=== PATIENT | female | born 1965 | race Caucasian/White ===

== ENCOUNTER 2021-11-01 14:25 | Inpatient (IN) | payer OTHER ==
[~2021-11-01] VITALS: Ht 170.2 cm; Wt 95.8 kg
[2021-11-01 14:25] VITALS: BP 175/85
--- NOTE | 2021-11-01 14:25 | NUR ---
Patient arriced to unit via stretcher with EMS from [facility]. present. Patient reports right sided abdominal and flank pain before going to [facility] where they discovered a 5 mm stone in the right kidney. Patient is alert and oriented. Provided list of home medications.
[2021-11-01] MEDS ORDERED: ELECTROLYTE (NON-ICU) PROTOCOL. MC PRN (14:45)
[2021-11-01] MEDS ORDERED: ZOLPIDEM 5 MG TABLET. PO PRN (14:45)
[2021-11-01] MEDS ORDERED: MORPHINE SULFATE 2 MG/ML INJ. IV PRN (14:45)
[2021-11-01] MEDS ORDERED: ACETAMINOPHEN 325 MG TABLET. PO PRN (14:45)
[2021-11-01] MEDS ORDERED: HYDROmorphone 2 MG/ML INJ. IVP ONE (14:45)
[2021-11-01] MEDS ORDERED: CALCIUM CARBONATE 500 MG TAB.CHEW PO PRN (14:45)
[2021-11-01] MEDS: HEPARIN for SUB-Q USE 5,000 UNIT/ML VIAL. SQ SCH ×2 (15:00→22:05)
[2021-11-01] MEDS: ONDANSETRON PF 4 MG/2 ML VIAL. IVP PRN ×2 (15:05→21:58)
[2021-11-01] MEDS: INSULIN LISPRO 300 UNITS/3 ML VIAL. SQ SCH (17:00)
[2021-11-01] MEDS: metFORMIN 500 MG TABLET PO SCH (17:00)
--- NOTE | 2021-11-01 18:38 | PDOC1 ---
History and Physical Date of Service: DOS: DATE: 11/01/21 TIME: 18:31 Chief Complaint: Chief Complain: abdominal pain History of Present Illness: HPI: 56-year-old female presented to outside hospital due to right lower quadrant pain. Recently seen for similar and was diagnosed with diverticulitis. Discharged with Augmentin but has only had worsening in the pain. Unable to bear the pain at home she presented to the emergency room today. While there pain was controlled. Imaging showed no signs of ongoing diverticulitis however finding of a right ureteral stone. Patient was given pain control and Flomax and transferred here for further treatment. On arrival here patient in a fair bit of pain. Will order pain meds. Urology consultation. Past Medical/Surgical History: PMH/PSH: Past Medical History: Diabetes, Hypertension Past Surgical History: Tubal ligation Additional Past Surgical Histo: LUMBAR NERVE ABLATION Smoking: Non-smoker Alcohol Use: None Drug Use: None Allergies: Allergies: Coded Allergies: lisinopril (Verified Allergy, Intermediate, 11/01/21) codeine (Verified Adverse Reaction, Unknown, Nausea, 11/01/21) Family History: Family History: HTN Current Medications: Current Medications Current Medications Ondansetron HCl (Zofran) 4 mg PRN Q6HRS PRN IVP NAUSEA/VOMITING Last administered on 11/01/21at 15:05; Start 11/01/21 at 14:45 Calcium Carbonate/ Glycine (Tums) 500 mg PRN Q3HRS PRN PO UPSET STOMACH; Start 11/01/21 at 14:45 Zolpidem Tartrate (Ambien) 5 mg PRN QHS PRN PO INSOMNIA, MAY REPEAT IN 1HR; Start 11/01/21 at 14:45 Info (Non-Icu Electrolyte Protocol) 1 ea PRN DAILY PRN MC SEE COMMENTS; Start 11/01/21 at 14:45 Morphine Sulfate (Morphine Sulfate) 1 mg PRN Q1HR PRN IV PAIN-SEE COMMENTS; Start 11/01/21 at 14:45 Morphine Sulfate (Morphine Sulfate) 2 mg PRN Q1HR PRN IV PAIN-SEE COMMENTS; Start 11/01/21 at 14:45 Acetaminophen (Tylenol) 650 mg PRN Q6HRS PRN PO Headaches, Temp > 101.5F; Start 11/01/21 at 14:45 Senna/Docusate Sodium (Senna Plus) 1 tab BID PO ; Start 11/01/21 at 21:00 Heparin Sodium (Porcine) (Heparin Sodium) 5,000 unit Q8HRS SQ Last administered on 11/01/21at 15:00; Start 11/01/21 at 15:00 Hydromorphone HCl (Dilaudid) 1 mg 1X ONCE IVP Last administered on 11/01/21at 15:05; Start 11/01/21 at 14:45; Stop 11/01/21 at 14:53; Status DC Metformin HCl (Glucophage) 1,000 mg BIDWMEALS PO Last administered on 11/01/21at 17:00; Start 11/01/21 at 17:00 Bupropion HCl (Wellbutrin Xl) 300 mg DAILY PO ; Start 11/02/21 at 09:00 Fluoxetine HCl (PROzac) 40 mg DAILY PO ; Start 11/02/21 at 09:00 Cyanocobalamin (Vitamin B-12) 1,000 mcg DAILY PO ; Start 11/02/21 at 09:00 Losartan Potassium (Cozaar) 100 mg DAILY PO ; Start 11/02/21 at 09:00 Diphenhydramine HCl (Benadryl) 25 mg HS PO ; Start 11/01/21 at 21:00 Insulin Glargine (Lantus Syringe) 30 unit QHS SQ ; Start 11/01/21 at 21:00 Insulin Human Lispro (HumaLOG) 20 units TIDWMEALS SQ Last administered on 11/01/21at 17:00; Start 11/01/21 at 17:00 Atorvastatin Calcium (Lipitor) 40 mg HS PO ; Start 11/01/21 at 21:00 ROS: Review of Systems Review of System Unless noted in HPI 14 point review of systems was negative Physical Exam: Vital Signs: Vital Signs Date Time Temp Pulse Resp B/P (MAP) Pulse Ox O2 Delivery O2 Flow Rate FiO2 11/01/21 18:07 16 98 Room Air 11/01/21 14:25 97.5 64 175/85 (115) 97.5 Physcial Exam: GEN: Severe distress. Alert and oriented HEENT: Normal cephalic, atraumatic, external auditory canals are patent EYES: Extraocular muscles are intact, pupil are equally round and reactive to light and accommodation MUSCULOSKELETAL: Well developed , well nourished, good range of motion ENDOCRINE: No thyromegaly was palpated LYMPHATICS: No cervical chain or axillary nodes were noted HEMATOPOIETIC: No bruising NECK: Supple, no JVD, no thyromegaly was noted LUNGS: Clear to auscultation in all lung mejía without rhonchi or wheezing HEART: RRR, S1, S2 present. Peripheral pulses intact, no obvious murmurs noted ABDOMEN: Diffusely tender even with soft palpation to right lower quadrant. CVA tenderness present EXTREMITIES: Without clubbing, cyanosis, or edema. Pedal pulses intact. Negative Homans sign NEUROLOGIC: Normal speech and tone. A&O x 3, moves all extremities, no obvious focal deficits PSYCHIATRIC: Normal affect, normal mood. Stable SKIN: No ulcerations or rashes, good skin turgor, no jaundice VASCULAR: Good capillary refill, neurovascular bundle appears to be intact Assessment/Plan Assessment/Plan Right lower quadrant pain secondary to right ureteral stone, history of and recent diagnosis of diverticulitis; history hypertension diabetes -Presented to outside hospital with abdominal pain. Found to have 5 mm right ureteral stone. Transferred here -Aggressive pain regimen. Received Flomax at outside hospital -Urology consultation --> recommended n.p.o. midnight in event of procedure if needed -No signs of further diverticulitis on imaging. Will at least continue Augmentin to complete course -DVT prophylaxis just for tonight -Med reconciliation needed. Most home meds can likely be continued -Regular diet n.p.o. midnight -Discussed with bedside RN. Justifications for Admission Other Justification CHRIS WARD MD November 01, 2021 18:38
[2021-11-01 18:48] LABS: BASO % 0 % (0-3); EOS % 0 % (0-3); LYMPH # 1.3 x10^3/uL (1.0-4.8); LYMPH % 20 % (24-48); MEAN CORPUSCULAR HEMOGLOBIN 28 pg (25-35); MEAN CORPUSCULAR HGB CONC 33 g/dL (31-37); MEAN CORPUSCULAR VOLUME 83 fL (79-100); MONO # 0.3 x10^3/uL (0.0-1.1); MONO % 4 % (0-9); NEUT # 4.6 x10^3/uL (1.8-7.7); NEUT % 75 % (31-73); PLATELET COUNT 280 x10^3/uL (140-400); RED BLOOD COUNT 4.34 x10^6/uL (3.50-5.40); RED CELL DISTRIBUTION WIDTH 14.1 % (11.5-14.5); WHITE BLOOD COUNT 6.1 x10^3/uL (4.0-11.0)
[2021-11-01 19:05] LABS: CREATININE 0.9 mg/dL (0.6-1.0); POTASSIUM 3.8 mmol/L (3.5-5.1)
[2021-11-01 19:39] VITALS: BP 143/82
[2021-11-01] MEDS: SENNOSIDES/DOCUSATE 8.6/50MG TABLET. PO SCH (20:03)
[2021-11-01] MEDS: MORPHINE SULFATE 2 MG/ML INJ. IV PRN (20:08)
[2021-11-01] MEDS: diphenhydrAMINE HCL 25 MG CAPSULE PO SCH (20:09)
[2021-11-01] MEDS: INSULIN GLARGINE SYRINGE. SQ SCH (20:09)
[2021-11-01] MEDS: ATORVASTATIN CALCIUM 40 MG TABLET. PO SCH (20:09)
--- NOTE | 2021-11-01 20:13 | NUR ---
Glucose per sensor was 70, 69. Asymptomatic. Given apple juice.
--- NOTE | 2021-11-01 20:25 | NUR ---
Glucose 66. Pt drank more apple juice. Will monitor.
--- NOTE | 2021-11-01 20:41 | NUR ---
Glucose: 75. Offered snacks. Crackers given.
[2021-11-01 23:14] VITALS: BP 149/74
[2021-11-02] VITALS (12 sets, daily range): BP systolic 131–180; BP diastolic 73–89
[2021-11-02] MEDS: HEPARIN for SUB-Q USE 5,000 UNIT/ML VIAL. SQ SCH ×3 (03:55→21:53)
[2021-11-02] MEDS: MORPHINE SULFATE 2 MG/ML INJ. IV PRN ×6 (03:58→21:43)
[2021-11-02] MEDS: ONDANSETRON PF 4 MG/2 ML VIAL. IVP PRN ×2 (04:02→10:26)
--- NOTE | 2021-11-02 04:06 | NUR ---
Glucose @ 3am: 145
[2021-11-02] MEDS: LOSARTAN POTASSIUM 50 MG TABLET. PO SCH ×2 (07:56→17:42)
[2021-11-02] MEDS: metFORMIN 500 MG TABLET PO SCH ×2 (07:56→17:00)
[2021-11-02] MEDS: CYANOCOBALAMIN (VITAMIN B-12) 1,000 MCG TABLET. PO SCH ×2 (07:57→17:41)
[2021-11-02] MEDS: buPROPion XL 150 MG TAB.ER.24H. PO SCH ×2 (07:57→17:41)
[2021-11-02] MEDS: SENNOSIDES/DOCUSATE 8.6/50MG TABLET. PO SCH ×2 (07:57→21:25)
[2021-11-02] MEDS: FLUoxetine HCL 20 MG CAPSULE PO SCH ×2 (07:57→17:41)
[2021-11-02] MEDS: INSULIN LISPRO 300 UNITS/3 ML VIAL. SQ SCH ×3 (08:00→17:00)
--- NOTE | 2021-11-02 08:00 | NUR ---
Pt blood sugar 160 via free style jeovany. Humalog held due to NPO status.
[2021-11-02 09:29] LABS: BACTERIA,URINE MODERATE /HPF (0-FEW); RBC,URINE 20-40 /HPF (0-2)
--- NOTE | 2021-11-02 10:17 | PDOC2 ---
UROLOGY CONSULT DOS: DATE: 11/02/21 TIME: 10:09 Reason for Consult: Kidney stone 56F transferred from [facility] for a 5 mm distal right ureteral stone. Patient states she was having very sharp and constant right lower quadrant pain with intermittent right flank pain. Pain was not going away so she went to the emergency department. CT scan showing mild right-sided hydronephrosis from the obstruction. Her creatinine stable at 0.9. I did not see an initial urinalysis in the chart, but this was completed this morning and does not show any infection. She has been straining her urine overnight and has not passed the stone. She does not have any history of stones. She has never had any procedures. She does not follow with urology. She is having gross hematuria and mild urinary frequency. She denies any fevers. She has been afebrile with stable vitals here in the hospital. She does not have a leukocytosis. Past medical history significant for hypertension, diabetes, hyperlipidemia. She does not take any anticoagulation at baseline. She is still having pain this morning as well as slight nausea ROS Constitutional: Denies fevers, chills, weakness Cardiovascular: Denies chest pain, palpitations Respiratory: Denies shortness of breath, wheezing, dyspnea on exertion GI: + abdominal pain, nausea, -vomiting : Denies dysuria,+ frequency, urgency, hematuria, -urinary retention, flank pain Skin: Denies rash, bruising Musculoskeletal: Denies extremity pain, extremity edema Psychiatric: Denies stress, anxiety Past Surgical History: No pertinent history Current Medications Current Medications Ondansetron HCl (Zofran) 4 mg PRN Q6HRS PRN IVP NAUSEA/VOMITING Last administered on 11/02/21at 04:02; Start 11/01/21 at 14:45 Calcium Carbonate/ Glycine (Tums) 500 mg PRN Q3HRS PRN PO UPSET STOMACH; Start 11/01/21 at 14:45 Zolpidem Tartrate (Ambien) 5 mg PRN QHS PRN PO INSOMNIA, MAY REPEAT IN 1HR; Start 11/01/21 at 14:45 Info (Non-Icu Electrolyte Protocol) 1 ea PRN DAILY PRN MC SEE COMMENTS; Start 11/01/21 at 14:45 Morphine Sulfate (Morphine Sulfate) 1 mg PRN Q1HR PRN IV PAIN-SEE COMMENTS; Start 11/01/21 at 14:45 Morphine Sulfate (Morphine Sulfate) 2 mg PRN Q1HR PRN IV PAIN-SEE COMMENTS Last administered on 11/02/21at 08:35; Start 11/01/21 at 14:45 Acetaminophen (Tylenol) 650 mg PRN Q6HRS PRN PO Headaches, Temp > 101.5F; Start 11/01/21 at 14:45 Senna/Docusate Sodium (Senna Plus) 1 tab BID PO Last administered on 11/01/21at 20:03; Start 11/01/21 at 21:00 Heparin Sodium (Porcine) (Heparin Sodium) 5,000 unit Q8HRS SQ Last administered on 11/01/21at 22:05; Start 11/01/21 at 15:00 Hydromorphone HCl (Dilaudid) 1 mg 1X ONCE IVP Last administered on 11/01/21at 15:05; Start 11/01/21 at 14:45; Stop 11/01/21 at 14:53; Status DC Metformin HCl (Glucophage) 1,000 mg BIDWMEALS PO Last administered on 11/01/21at 17:00; Start 11/01/21 at 17:00 Bupropion HCl (Wellbutrin Xl) 300 mg DAILY PO ; Start 11/02/21 at 09:00 Fluoxetine HCl (PROzac) 40 mg DAILY PO ; Start 11/02/21 at 09:00 Cyanocobalamin (Vitamin B-12) 1,000 mcg DAILY PO ; Start 11/02/21 at 09:00 Losartan Potassium (Cozaar) 100 mg DAILY PO ; Start 11/02/21 at 09:00 Diphenhydramine HCl (Benadryl) 25 mg HS PO ; Start 11/01/21 at 21:00 Insulin Glargine (Lantus Syringe) 30 unit QHS SQ ; Start 11/01/21 at 21:00 Insulin Human Lispro (HumaLOG) 20 units TIDWMEALS SQ Last administered on 11/01/21at 17:00; Start 11/01/21 at 17:00 Atorvastatin Calcium (Lipitor) 40 mg HS PO ; Start 11/01/21 at 21:00 Allergies: Coded Allergies: lisinopril (Verified Allergy, Intermediate, 11/01/21) codeine (Verified Adverse Reaction, Mild, Nausea, 11/02/21) Physical Examination GENERAL: awake, alert, oriented SKIN: warm, dry RESPIRATORY: Aerating well, symmetrical expansion GI: Soft, right lower quadrant tender to palpation no guarding, no rebound : Exam deferred, no CVA tenderness MUSCULOSKELETAL: Moves all extremities, no edema NEURO: No gross abnormalities PSYCHIATRIC: Normal mood, normal affect, pleasant DOES THIS PATIENT HAVE URINARY: No VITALS Vital Signs Date Time Temp Pulse Resp B/P (MAP) Pulse Ox O2 Delivery O2 Flow Rate FiO2 11/02/21 09:10 Room Air 11/02/21 07:00 98.2 93 18 141/76 (97) 96 98.2 Labs Laboratory Tests Test 11/01/21 18:20 11/01/21 19:43 11/02/21 08:45 White Blood Count 6.1 x10^3/uL (4.0-11.0) Red Blood Count 4.34 x10^6/uL (3.50-5.40) Hemoglobin 12.0 g/dL (12.0-15.5) Hematocrit 36.0 % (36.0-47.0) Mean Corpuscular Volume 83 fL (79-100) Mean Corpuscular Hemoglobin 28 pg (25-35) Mean Corpuscular Hemoglobin Concent 33 g/dL (31-37) Red Cell Distribution Width 14.1 % (11.5-14.5) Platelet Count 280 x10^3/uL (140-400) Neutrophils (%) (Auto) 75 % (31-73) Lymphocytes (%) (Auto) 20 % (24-48) Monocytes (%) (Auto) 4 % (0-9) Eosinophils (%) (Auto) 0 % (0-3) Basophils (%) (Auto) 0 % (0-3) Neutrophils # (Auto) 4.6 x10^3/uL (1.8-7.7) Lymphocytes # (Auto) 1.3 x10^3/uL (1.0-4.8) Monocytes # (Auto) 0.3 x10^3/uL (0.0-1.1) Eosinophils # (Auto) 0.0 x10^3/uL (0.0-0.7) Basophils # (Auto) 0.0 x10^3/uL (0.0-0.2) Sodium Level 138 mmol/L (136-145) Potassium Level 3.8 mmol/L (3.5-5.1) Chloride Level 103 mmol/L (98-107) Carbon Dioxide Level 24 mmol/L (21-32) Anion Gap 11 (6-14) Blood Urea Nitrogen 21 mg/dL (7-20) Creatinine 0.9 mg/dL (0.6-1.0) Estimated GFR (Cockcroft-Gault) 65.0 Glucose Level 164 mg/dL (70-99) Calcium Level 9.0 mg/dL (8.5-10.1) SARS-CoV-2 Antigen (Rapid) Negative (NEGATIVE) Urine Collection Type Unknown Urine Color (Auto) Yellow Urine Turbidity Hazy Urine pH (Auto) 5.5 (<5.0-8.0) Urine Specific [place] 1.018 (1.000-1.030) Urine Protein (Auto) 30 mg/dL (Negative) Urine Glucose (Auto)(UA) Negative mg/dL (Negative) Urine Ketones (Auto) Negative mg/dL (Negative) Urine Blood (Auto) Large (Negative) Urine Nitrite Negative (Negative) Urine Bilirubin (Auto) Negative (Negative) Urine Urobilinogen (Auto) Normal mg/dL (Normal) Urine Leukocyte Esterase (Auto) Small (Negative) Urine RBC 20-40 /HPF (0-2) Urine WBC 5-10 /HPF (0-4) Urine Transitional Epithelial Cells Occ /LPF Urine Bacteria Moderate /HPF (0-FEW) Urine Mucus Mod /LPF Laboratory Tests Test 11/01/21 18:20 11/01/21 19:43 11/02/21 08:45 White Blood Count 6.1 x10^3/uL (4.0-11.0) Red Blood Count 4.34 x10^6/uL (3.50-5.40) Hemoglobin 12.0 g/dL (12.0-15.5) Hematocrit 36.0 % (36.0-47.0) Mean Corpuscular Volume 83 fL (79-100) Mean Corpuscular Hemoglobin 28 pg (25-35) Mean Corpuscular Hemoglobin Concent 33 g/dL (31-37) Red Cell Distribution Width 14.1 % (11.5-14.5) Platelet Count 280 x10^3/uL (140-400) Neutrophils (%) (Auto) 75 % (31-73) Lymphocytes (%) (Auto) 20 % (24-48) Monocytes (%) (Auto) 4 % (0-9) Eosinophils (%) (Auto) 0 % (0-3) Basophils (%) (Auto) 0 % (0-3) Neutrophils # (Auto) 4.6 x10^3/uL (1.8-7.7) Lymphocytes # (Auto) 1.3 x10^3/uL (1.0-4.8) Monocytes # (Auto) 0.3 x10^3/uL (0.0-1.1) Eosinophils # (Auto) 0.0 x10^3/uL (0.0-0.7) Basophils # (Auto) 0.0 x10^3/uL (0.0-0.2) Sodium Level 138 mmol/L (136-145) Potassium Level 3.8 mmol/L (3.5-5.1) Chloride Level 103 mmol/L (98-107) Carbon Dioxide Level 24 mmol/L (21-32) Anion Gap 11 (6-14) Blood Urea Nitrogen 21 mg/dL (7-20) Creatinine 0.9 mg/dL (0.6-1.0) Estimated GFR (Cockcroft-Gault) 65.0 Glucose Level 164 mg/dL (70-99) Calcium Level 9.0 mg/dL (8.5-10.1) SARS-CoV-2 Antigen (Rapid) Negative (NEGATIVE) Urine Collection Type Unknown Urine Color (Auto) Yellow Urine Turbidity Hazy Urine pH (Auto) 5.5 (<5.0-8.0) Urine Specific [place] 1.018 (1.000-1.030) Urine Protein (Auto) 30 mg/dL (Negative) Urine Glucose (Auto)(UA) Negative mg/dL (Negative) Urine Ketones (Auto) Negative mg/dL (Negative) Urine Blood (Auto) Large (Negative) Urine Nitrite Negative (Negative) Urine Bilirubin (Auto) Negative (Negative) Urine Urobilinogen (Auto) Normal mg/dL (Normal) Urine Leukocyte Esterase (Auto) Small (Negative) Urine RBC 20-40 /HPF (0-2) Urine WBC 5-10 /HPF (0-4) Urine Transitional Epithelial Cells Occ /LPF Urine Bacteria Moderate /HPF (0-FEW) Urine Mucus Mod /LPF Assessment/Plan -- Kidney stone CT imaging showing 5 mm distal right ureteral stone. Creatinine stable at 0.9. UA without infection. She does not have a leukocytosis, afebrile. Pain is not controlled this morning, awaiting KUB results but presuming due to her symptoms stone is still present. Discussed stone management options including observation, ESWL, ureteroscopy and laser lithotripsy. Due to persistent pain, will plan for cystoscopy, right ureteroscopy, laser of stone and stent placement in the operating room today at 2 PM. She has been n.p.o. since midnight. Ancef ordered preoperatively. Dr. Jones will be the surgeon. Risk explained including bleeding, infection, injury to organs, complications with anesthesia, etc. She is agreeable and consent will be obtained. Continue straining urine prior to surgery, if passes stone, will cancel surgery. Flomax. Patient is comfortable removing the stent at home in 3 to 5 days if a string is left. She can then follow-up with our office in 3 months to discuss kidney stone prevention strategies. Presume patient will be able to be discharged after surgery this afternoon. AMOS MUÑOZ November 02, 2021 10:17
[2021-11-02] MEDS ORDERED: HYDROmorphone 2 MG/ML INJ. IVP PRN (10:30)
[2021-11-02] MEDS ORDERED: fentaNYL PF VIAL 100 MCG/2 ML VIAL IVP PRN ×2 (10:30)
[2021-11-02] MEDS ORDERED: MORPHINE SULFATE 2 MG/ML INJ. IVP PRN (10:30)
[2021-11-02] MEDS ORDERED: HYDROmorphone 2 MG/ML INJ. IVP ONE (10:30)
[2021-11-02] MEDS ORDERED: PROCHLORPERAZINE 10 MG/2 ML VIAL. IVP PRN (10:30)
[2021-11-02] MEDS ORDERED: IOHEXOL 300 MG/ML 50 ML VIAL. ONE (11:09)
--- NOTE | 2021-11-02 12:15 | NUR ---
Pt FSBG 158 via [employer] Style Vey. Non-administered humalog due to NPO status.
[2021-11-02] MEDS ORDERED: DEXAMETHASONE SOD PHOS 4 MG/ML VIAL ONE (12:24)
[2021-11-02] MEDS ORDERED: ONDANSETRON PF 4 MG/2 ML VIAL. ONE (12:24)
[2021-11-02] MEDS ORDERED: LIDOCAINE 2% PF 5 ML VIAL. ONE (12:24)
[2021-11-02] MEDS ORDERED: PROPOFOL 10 MG/ML (20ML) VIAL. IV ONE (12:24)
--- NOTE | 2021-11-02 12:28 | NUR ---
SS following for discharge planning. SS reviewed pt chart and discussed with pt RN. Pt is from home with spouse and is currently on room air. COVID19 negative. Urology consulted. SS will continue to follow for discharge planning.
--- NOTE | 2021-11-02 13:06 | RAD ---
EXAM: XR ABDOMEN 1V 11/02/2021 8:06 AM CLINICAL INDICATION: Right-sided kidney stone COMPARISON: 11/01/2021 TECHNIQUE: AP supine view the abdomen FINDINGS: No urolithiasis seen by radiograph. Bowel gas pattern is nonobstructive. Moderate volume o f stool. Mild degenerative disc disease at L3-L4. IMPRESSION: No radiopaque urolithiasis seen by radiograph. Electronically signed by: Amanda Ho MD (11/02/2021 1:04 PM) [id number]
[2021-11-02] MEDS ORDERED: INSULIN LISPRO 100 UNIT/ML 3ML VIAL for OP,RR ONLY. SQ PRN (13:15)
[2021-11-02] MEDS: IV RINGERS,LACTATED 1000ML 1,000 ML IV SCH ×2 (13:28→16:48)
[2021-11-02] MEDS ORDERED: MIDAZOLAM HCL/PF 2 MG/2 ML VIAL. ONE (13:45)
[2021-11-02] MEDS ORDERED: SUCCINYLCHOLINE 200 MG/10 ML VIAL. ONE (13:51)
[2021-11-02] MEDS ORDERED: fentaNYL PF VIAL 100 MCG/2 ML VIAL ONE (13:52)
[2021-11-02] MEDS ORDERED: SCOPOLAMINE 1.5MG PATCH. TD ONE (14:00)
[2021-11-02] MEDS ORDERED: ceFAZolin 2GM PREMIX 2 GM/50 ML BAG IV ONE (15:10)
[2021-11-02] MEDS ORDERED: IOHEXOL 240 MG/ML 50ML VIAL. IV ONE (15:38)
[2021-11-02] MEDS ORDERED: ePHEDrine PF IN SALINE 50 MG/10 ML SYRINGE. IV ONE (15:44)
--- NOTE | 2021-11-02 16:34 | PDOC4 ---
OPERATIVE NOTE Date: Date: November 02, 2021 Pre-Op Diagnosis: Right ureteral stone Post-Op Diagnosis: Same Procedure Performed: 1. Cystoscopy with right retrograde pyelogram. 2. Right ureteroscopy with stone laser and basketing of stone fragments. 3. Right ureteral stent placement Surgeon: Li Jones MD Anesthesia Type: General Blood Loss: None Specimans Obtained: Stone Findings: Right ureteral stone Complications: None Operative Note: Once patient was taken to the operating room she was placed supine on the operating table. Adequate anesthesia was established. Patient's position was changed to a dorsolithotomy. Genital area was prepped in usual surgical fashion. 21 Grenadian rigid cystoscope was introduced into the bladder. No abnormalities were noted. Right retrograde pyelogram was performed using 5 Grenadian open-ended catheter. Filling defect in the right distal ureter was noted consistent with known stone. 0.035 guidewire was placed into the right ureter followed by semirigid ureteroscope. About 5 to 6 mm stone was found. It was systematically fragmented with holmium laser and fragments taken out of the ureter with ZeroTip basket. No inadvertent injuries were noted. 6 Grenadian 24 cm double-J stent was placed into the right kidney under fluoroscopy guidance. Both proximal distal coils were observed. String was left attached. Patient's anesthesia was reversed and she was transported to postanesthesia care unit in stable condition. LI JONES MD November 02, 2021 16:34
--- NOTE | 2021-11-02 17:22 | NUR ---
FSBG 167- pt refused 1700 dose of Humalog. Will continue to monitor.
[2021-11-02] MEDS: INSULIN GLARGINE SYRINGE. SQ SCH (21:00)
[2021-11-02] MEDS: ATORVASTATIN CALCIUM 40 MG TABLET. PO SCH (21:25)
[2021-11-02] MEDS: diphenhydrAMINE HCL 25 MG CAPSULE PO SCH (21:25)
[2021-11-02] MEDS ORDERED: cefTRIAXone IV Push 1 GM VIAL. IVP SCH (22:00)
--- NOTE | 2021-11-02 22:04 | PDOC ---
[facility] PROGRESS NOTE Date of Service DOS: DATE: 11/02/21 TIME: 22:04 Chief Complaint Chief Complaint Right lower quadrant pain secondary to right ureteral stone, history of and recent diagnosis of diverticulitis; history hypertension diabetes -Presented to outside hospital with abdominal pain. Found to have 5 mm right ureteral stone. Transferred here -Aggressive pain regimen. Received Flomax at outside hospital -Urology consultation -No signs of further diverticulitis on imaging. Will at least continue Augmentin to complete course -DVT prophylaxis just for tonight -Med reconciliation needed. Most home meds can likely be continued -Regular diet n.p.o. midnight -Discussed with bedside RN. History of Present Illness History of Present Illness 11/02 Patient evaluated examined at bedside. Resting in bed resting getting ready for surgery this afternoon. Discussed case with urology. Pain controlled. Can discharge after procedure or in the morning. Vitals/I&O Vitals/I&O: Vital Signs Date Time Temp Pulse Resp B/P (MAP) Pulse Ox O2 Delivery O2 Flow Rate FiO2 11/02/21 21:43 18 96 Room Air 11/02/21 21:20 97.5 88 147/75 (99) 97.5 11/02/21 16:36 10.0 I & O 11/01/21 11/01/21 11/02/21 15:00 23:00 07:00 Intake Total 460 ml 0 ml Output Total 150 ml 575 ml Balance 310 ml -575 ml Physical Exam General: Alert, Oriented X3, Cooperative Heart: Regular rate Lungs: Clear Abdomen: Normal bowel sounds, Soft, No tenderness Extremities: No edema, Normal pulses Skin: No significant lesion Labs Labs: Laboratory Tests Test 11/02/21 08:45 Urine Collection Type Unknown Urine Color (Auto) Yellow Urine Turbidity Hazy Urine pH (Auto) 5.5 (<5.0-8.0) Urine Specific [place] 1.018 (1.000-1.030) Urine Protein (Auto) 30 mg/dL (Negative) Urine Glucose (Auto)(UA) Negative mg/dL (Negative) Urine Ketones (Auto) Negative mg/dL (Negative) Urine Blood (Auto) Large (Negative) Urine Nitrite Negative (Negative) Urine Bilirubin (Auto) Negative (Negative) Urine Urobilinogen (Auto) Normal mg/dL (Normal) Urine Leukocyte Esterase (Auto) Small (Negative) Urine RBC 20-40 /HPF (0-2) Urine WBC 5-10 /HPF (0-4) Urine Transitional Epithelial Cells Occ /LPF Urine Bacteria Moderate /HPF (0-FEW) Urine Mucus Mod /LPF Comment Review of Relevant I have reviewed the following items tiffany (where applicable) has been applied. Medications: Current Medications Medications (Trade) Dose Ordered Sig/Criselda Route PRN Reason Start Time Stop Time Status Last Admin Dose Admin Bupropion HCl (Wellbutrin Xl) 300 mg DAILY PO 11/02/21 09:00 11/02/21 17:41 Fluoxetine HCl (PROzac) 40 mg DAILY PO 11/02/21 09:00 11/02/21 17:41 Cyanocobalamin (Vitamin B-12) 1,000 mcg DAILY PO 11/02/21 09:00 11/02/21 17:41 Losartan Potassium (Cozaar) 100 mg DAILY PO 11/02/21 09:00 11/02/21 17:42 Hydromorphone HCl (Dilaudid) 1 mg 1X ONCE IVP 11/02/21 10:30 11/02/21 10:31 DC 11/02/21 10:26 Ringer's Solution 1,000 ml @ 30 mls/hr Q24H IV 11/02/21 10:30 11/02/21 22:29 11/02/21 16:48 Scopolamine (Transderm-Scop) 1 patch 1X ONCE TD 11/02/21 14:00 11/02/21 14:01 DC 11/02/21 13:54 Iohexol (Omnipaque 240 Mg/ml) 50 ml STK-MED ONCE IV 11/02/21 15:38 11/02/21 17:18 DC 11/02/21 15:38 Ceftriaxone Sodium (Rocephin) 1 gm Q24H IVP 11/02/21 22:00 11/02/21 21:45 Justifications for Admission Other Justification CHRIS WARD MD November 02, 2021 22:04
[2021-11-03 03:00] VITALS: BP 137/78
[2021-11-03] MEDS: HEPARIN for SUB-Q USE 5,000 UNIT/ML VIAL. SQ SCH (06:23)
[2021-11-03 07:00] VITALS: BP 134/82
[2021-11-03] MEDS: INSULIN LISPRO 300 UNITS/3 ML VIAL. SQ SCH (08:00)
[2021-11-03] MEDS: SENNOSIDES/DOCUSATE 8.6/50MG TABLET. PO SCH (08:38)
[2021-11-03] MEDS: CYANOCOBALAMIN (VITAMIN B-12) 1,000 MCG TABLET. PO SCH (08:39)
[2021-11-03] MEDS: FLUoxetine HCL 20 MG CAPSULE PO SCH (08:39)
[2021-11-03] MEDS: metFORMIN 500 MG TABLET PO SCH (08:39)
[2021-11-03] MEDS: buPROPion XL 150 MG TAB.ER.24H. PO SCH (08:39)
[2021-11-03] MEDS: LOSARTAN POTASSIUM 50 MG TABLET. PO SCH (08:40)
[2021-11-03] MEDS: MORPHINE SULFATE 2 MG/ML INJ. IV PRN ×2 (08:53→11:58)
[2021-11-03] MEDS ORDERED: LACTOBACILLUS RHAMNOSUS GG 1 CAPSULE. PO SCH (09:00)
[2021-11-03 11:00] VITALS: BP 128/70
[2021-11-03] MEDS ORDERED: OXYC-325 PO (11:54)
--- NOTE | 2021-11-03 12:43 | NUR ---
SS following up with discharge planning. SS reviewed pt chart and discussed with pt RN. Pt is currently on room air. COVID19 negative. Discharge order on the chart for home with self care.
--- NOTE | 2021-11-04 19:13 | PDOC3 ---
[facility]-Discharge Summary Date of Admission: Date of Admission: November 01, 2021 Date of Discharge: Date of Discharge: November 03, 2021 Admission Diagnosis: Admitting Diagnosis: kidney stone Consults: Consults: urology Hospital Course: Hospital Course: hief Complaint Right lower quadrant pain secondary to right ureteral stone, history of and recent diagnosis of diverticulitis; history hypertension diabetes -Presented to outside hospital with abdominal pain. Found to have 5 mm right ureteral stone. Transferred here -Aggressive pain regimen. Received Flomax at outside hospital -Urology consultation -No signs of further diverticulitis on imaging. Will at least continue Augmentin to complete course -DVT prophylaxis just for tonight -Med reconciliation needed. Most home meds can likely be continued -Regular diet n.p.o. midnight -Discussed with bedside RN. History of Present Illness History of Present Illness 11/03 Evaluated examined at bedside. Surgery went well. Okay to discharge today. Pain meds sent. Greater than 30-minute spent on discharge. 11/02 Patient evaluated examined at bedside. Resting in bed resting getting ready for surgery this afternoon. Discussed case with urology. Pain controlled. Can discharge after procedure or in the morning. Disposition: Disposition/Orders: D/C to Home Activity: Activity: Resume previous activity Diet: Diet: Regular Medications: Home Meds Active Scripts Oxycodone HCl/Acetaminophen (Percocet 5-325 mg Tablet) 1 Each Tablet, 1 TAB PO PRN BID PRN for PAIN MDD 2 Tablet(s) for 10 Days, #30 TAB 0 Refills Prov:CHRIS WARD MD 11/03/21 Scheduled PRN Oxycodone HCl/Acetaminophen (Percocet 5-325 mg Tablet), 1 TAB PO PRN BID PRN for PAIN Justicifation of Admission Dx: Justifications for Admission: Justification of Admission Dx: Yes (nephrolithiasis) CHRIS WARD MD November 04, 2021 19:13
--- NOTE | 2021-11-06 09:25 | PATHOLOGY ---
[facility] Accession Number: [id number] . 01 Material submitted: . ureter - RIGHT URETERAL STONE . 01 Clinical history: . CYSTOSCOPY . 02 Diagnosis: Ureter calculi: - Consistent with calculi. - The specimen is sent out for further processing. Report pending outside analysis with results to follow in an addendum. MBR 11/03/2021 1635 Local . 02 Electronically signed: . Santi Valderrama MD, Pathologist NPI- [id number] . 01 Gross description: . The specimen is received without fixative labeled, "Chacha Tomas, right uretal stone". Received are 3, irregularly-shaped, agee-briseno to dark brown, granular and firm stone fragments. The specimen is forwarded to sendouts for further processing. (KYLE; 11/03/2021) . Final diagnosis Ureter calculi: Consistent with calculi. The specimen is sent out for further processing. Report pending outside analysis with results to follow in an addendum. KYLE/KYLE 11/03/2021 1634 Local . 02 Pathologist provided ICD-10: N20.1 . 02 CPT . 988477 Specimen Comment: A courtesy copy of this report has been sent to [phone], [phone] Specimen Comment: [phone] Specimen Comment: Report sent to / DR DALAL Specimen Comment: A duplicate report has been generated due to demographic updates. Performed at: 01 [facility] [address], [place] [id number] MD Marcellus Srinivasan MD Phone: [phone] Performed at: 02 [facility] [address] [place], [place] [id number] MD Santi Valderrama MD Phone: [phone]
== END 2021-11-03 13:30 | disposition home or self-care (01) | DRG 661 ==
LOC: 5 NORTH 14:25
PROVIDERS: ADMIT Student in an Organized Health Care Education/Training Program; ATTEND Student in an Organized Health Care Education/Training Program
PROC: 0T768DZ Dilation of Right Ureter with Intraluminal Device, Via Natural or Artificial Opening Endoscopic (ICD-10-PCS; 2021-11-02)
PROC: 0TC68ZZ Extirpation of Matter from Right Ureter, Via Natural or Artificial Opening Endoscopic (ICD-10-PCS; 2021-11-02)
PROC: BT1D1ZZ Fluoroscopy of Right Kidney, Ureter and Bladder using Low Osmolar Contrast (ICD-10-PCS; principal; 2021-11-02 14:00)
DX: N13.2 Hydronephrosis with renal and ureteral calculous obstruction (principal); Z20.822 Contact with and (suspected) exposure to COVID-19; Z88.8 Allergy status to other drugs, medicaments and biological substances; Z79.899 Other long term (current) drug therapy; E11.9 Type 2 diabetes mellitus without complications; E78.5 Hyperlipidemia, unspecified; I10 Essential (primary) hypertension; R31.0 Gross hematuria; Z82.49 Family history of ischemic heart disease and other diseases of the circulatory system
CPT/HCPCS: 36415; 74018; 76000; 80048; 81001; 85025; 87077; 87086; 87186; 87426; 88300; A4657; A4930; C1758; C1769; C2617; J0330; J0690; J0696; J1100; J1170; J1644; J1815; J2250; J2270; J2405; J2704; J3010; J7120; Q9966; Q9967; G0378; Q0163